=== PATIENT | female | born 1990 | race Caucasian/White ===

== ENCOUNTER → 2016-10-15 | Outpatient (CLI) | payer OTHER ==
[~2016-10-15] MED LIST: AMOXICILLIN 50500 MG PO; AZURETTE1 TAB PO; CONCERTA36 MG PO; KLONOPIN 0.5MG0.5 MG PO; NORCO 325 MG-51 TAB PO; PERCOCET 325 MG1 TA2 PO; PREDNISONE10 MG PO; TUSS PO; ZOLOFT 50MG50 MG PO
== END ==
LOC: BHSO 10:47
DX: F90.0 Attention-deficit hyperactivity disorder, predominantly inattentive type (principal)

== ENCOUNTER → 2016-11-28 | Outpatient (CLI) | payer OTHER | LOC: BHSO 14:03 | DX: F33.1 Major depressive disorder, recurrent, moderate (principal) ==

== ENCOUNTER → 2017-01-06 | Outpatient (CLI) | payer OTHER | LOC: BHSO 09:38 | DX: F31.73 Bipolar disorder, in partial remission, most recent episode manic (principal) ==

== ENCOUNTER → 2017-02-20 | Outpatient (CLI) | payer OTHER | LOC: BHSO 09:18 | DX: F90.0 Attention-deficit hyperactivity disorder, predominantly inattentive type (principal) ==

== ENCOUNTER → 2017-04-08 | Outpatient (CLI) | payer OTHER | LOC: BHSO 09:18 | DX: F41.1 Generalized anxiety disorder (principal) ==

== ENCOUNTER 2017-04-13 14:52 | Emergency (ER) | payer OTHER ==
[~2017-04-13] VITALS: Ht 157.5 cm; Wt 45.5 kg
[~2017-04-13 14:52] MED LIST changes: -PREDNISONE10 MG PO; -TUSS PO
[2017-04-13 14:55] VITALS: BP 125/58; TEMP 98.9
[2017-04-13] MEDS ORDERED: TUSS PO (16:44)
[2017-04-13] MEDS ORDERED: PREDNISONE10 MG PO (16:44)
[2017-04-13 17:18] VITALS: PULSE 102
== END 2017-04-13 17:18 | disposition home or self-care (01) ==
LOC: COL.ER 14:52
DX: R05 Cough (principal); R07.9 Chest pain, unspecified; R06.02 Shortness of breath; F17.200 Nicotine dependence, unspecified, uncomplicated; F12.90 Cannabis use, unspecified, uncomplicated
CPT/HCPCS: J7512

== ENCOUNTER → 2017-11-04 | Outpatient (CLI) | payer OTHER ==
[~2017-11-04] MED LIST changes: +PREDNISONE10 MG PO; +TUSS PO
== END ==
LOC: BHSO 15:48
DX: F41.1 Generalized anxiety disorder (principal)
CPT/HCPCS: G0463

== ENCOUNTER 2017-12-31 15:47 | Emergency (ER) | payer OTHER ==
[~2017-12-31] VITALS: Ht 157.5 cm; Wt 47.7 kg
[2017-12-31 16:26] VITALS: BP 133/76; PULSE 99
[2017-12-31] MEDS ORDERED: ZOLOFT 100MG100 MG PO (16:28)
[2017-12-31] MEDS ORDERED: LAMICTAL 100MG100 MG PO (16:29)
[2017-12-31] MEDS ORDERED: VYVANSE30 MG PO (16:29)
[2017-12-31] MEDS ORDERED: SEROQUEL50 MG PO (16:29)
[2017-12-31] MEDS ORDERED: PRIL40 PO (16:30)
[2017-12-31 16:33] LABS: BASO # 0.1 (0.0-0.2); EOS # 0.6 (0.0-0.7); EOS % 5.7 % (0-4.0); GRAN # 4.8 (1.4-6.5); GRAN % 49.7 % (42.2-75.2); HEMATOCRIT 40.8 % (37.0-47.0); LYMPH # 3.3 (1.2-3.4); LYMPH % 34.1 % (20.0-51.0); MEAN CELL VOLUME 83 fl (80.0-100.0); MEAN CORPUSCULAR HEMOGLOBIN 29 pg (27.0-31.0); MEAN CORPUSCULAR HGB CONC 34 g/dl (33.0-37.0); MEAN PLATELET VOLUME 8.6 fl (7.4-10.4); MONO # 0.9 (0.1-0.6); MONO % 9.1 % (1.7-9.3); PLATELET COUNT 349 K/mm3 (130-400); RED BLOOD COUNT 4.91 M/mm3 (4.10-5.30); REDCELL DISTRIBUTION WIDTH-CV 13.6 % (11.5-14.5)
[2017-12-31] MEDS ORDERED: FLEXERIL 1010 MG/TAB PO (16:41)
[2017-12-31 16:48] LABS: CALCIUM 9.6 mg/dL (8.4-10.2); CREATININE, serum 0.66 mg/dL (0.52-1.25); POTASSIUM 3.5 mmol/L (3.4-5.0)
== END 2017-12-31 17:04 | disposition home or self-care (01) ==
LOC: COL.ER 15:47
PROVIDERS: Physician Assistant
DX: S16.1XXA Strain of muscle, fascia and tendon at neck level, initial encounter (principal); S29.019A Strain of muscle and tendon of unspecified wall of thorax, initial encounter; S76.011A Strain of muscle, fascia and tendon of right hip, initial encounter; F32.9 Major depressive disorder, single episode, unspecified; F41.9 Anxiety disorder, unspecified; F43.10 Post-traumatic stress disorder, unspecified; V43.52XA Car driver injured in collision with other type car in traffic accident, initial encounter

== ENCOUNTER → 2018-03-13 | Outpatient (CLI) | payer OTHER ==
[~2018-03-13] MED LIST changes: +FLEXERIL 1010 MG/TAB PO; +LAMICTAL 100MG100 MG PO; +PRIL40 PO; +SEROQUEL50 MG PO; +VYVANSE30 MG PO; +ZOLOFT 100MG100 MG PO
== END ==
LOC: BHSO 09:44
DX: F43.10 Post-traumatic stress disorder, unspecified (principal)
CPT/HCPCS: G0463